=== PATIENT | female | born 1980 | race Caucasian/White ===

== ENCOUNTER 2018-10-23 12:03 | Emergency (ER) | payer OTHER ==
--- NOTE | 2018-10-23 13:05 | Emergency Department Record ---
History of Present Illness - General Chief Complaint: General Stated Complaint: OUT OF MEDS Time Seen by Provider: 10/23/18 12:07 Source: Patient, Family Mode of Arrival: Ambulatory Limitations: No limitations - History of Present Illness Initial comments: The patient is here due to being out of her Estradiol hormone for 3 days. She denies any pain, other problems, or bleeding. She did go to the but she states they refused to see her. Onset/Timin -: Days(s) - Related Data Previous Rx's Medication Instructions Recorded Estradiol 2 mg PO DAILY #30 tablet 10/23/18 Allergies Allergy/AdvReac Type Severity Reaction Status Date / Time shellfish derived Allergy Severe Facial Verified 10/23/18 13:03 Swelling and Anaphylaxis Penicillins Allergy SWELLING Verified 10/23/18 13:03 OF THE FACE Review of Systems Constitutional: Denies: Chills, Fever Eyes: Denies: Eye discharge ENT: Denies: Congestion Respiratory: Denies: Cough, Dyspnea Physical Exam - General General Appearance: Alert, Oriented x3, Cooperative, No acute distress - Head Head exam: Atraumatic, Normocephalic - Eye Eye exam: Normal appearance - Neck Neck exam: Normal inspection, Full ROM. negative: Tenderness - Respiratory Respiratory exam: Normal lung sounds bilaterally. negative: Respiratory distress - Cardiovascular Cardiovascular Exam: Regular rate, Normal rhythm, Normal heart sounds - GI/Abdominal GI/Abdominal exam: Soft, Normal bowel sounds. negative: Rebound, Rigid, Tenderness - Extremities Extremities exam: Normal inspection, Full ROM, Normal capillary refill. negative: Tenderness - Neurological Neurological exam: Alert, Normal gait. negative: Abnormal gait, Motor sensory deficit - Psychiatric Psychiatric exam: negative: Anxious Course - Reevaluation(s) Reevaluation #1: I did discuss the need to get a new provider but did agree to refill her estrogen. 10/23/18 13:07 Disposition Disposition: Discharge Clinical Impression: Medication refill Disposition: Home, Self-Care Condition: (2) Stable Instructions: Medicine Refill (ED) Additional Instructions: Please restart your Estradiol and please see your family doctor for recheck. Prescriptions: Estradiol 2 mg PO DAILY #30 tablet Forms: Patient Portal Access Time of Disposition: 13:17 Quality - Quality Measures Quality Measures: N/A - Blood Pressure Screening View Details: Yes Does Patient Have Any of the Following: No Blood Pressure Classification: Hypertensive Reading Systolic Measurement: 147 Diastolic Measurement: 97 Screening for High Blood Pressure: < First Hypertensive BP, F/U Documented > [ [id number]] First Hypertensive Follow-up Interventions: Referral to alternative/primary care provider.
== END 2018-10-23 13:26 | disposition home or self-care (01) ==
LOC: ER 12:03
DX: Z76.0 Encounter for issue of repeat prescription (principal)
CPT/HCPCS: 99281